=== PATIENT | female | born 1955 | race American Indian/Alaskan Native ===

== ENCOUNTER 2017-03-23 07:04 | Day surgery (SDC) | payer OTHER ==
[~2017-03-23 07:04] MED LIST: ANCEF/STERILE WATER 2 GM/20 ML IV NR
[2017-03-23] MEDS ORDERED: ADRENALIN ONE (07:13)
[2017-03-23] MEDS ORDERED: LACTATED RINGERS 1,000 ML ONE (09:00)
[2017-03-23] MEDS ORDERED: LACTATED RINGERS 1,000 ML IV SCH (10:00)
[2017-03-23] MEDS ORDERED: PEPCID IV NR (10:00)
[2017-03-23] MEDS ORDERED: VERSED IV NR (10:00)
[2017-03-23] MEDS ORDERED: DIPRIVAN 10 MG/ML IV ONE (10:40)
[2017-03-23] MEDS ORDERED: ZEMURON IV ONE (10:40)
[2017-03-23] MEDS ORDERED: XYLOCAINE MPF 2% ONE (10:40)
[2017-03-23] MEDS ORDERED: SUBLIMAZE ONE (10:40)
[2017-03-23] MEDS ORDERED: QUELICIN ONE (10:40)
--- NOTE | 2017-03-23 10:48 | Anesthesia Consultation ---
Anesthesia Consult and Med Hx Date of service: 03/23/17 - Airway Anesthetic Teeth Evaluation: Good (some missing) ROM Head & Neck: Adequate Mental/Hyoid Distance: Adequate Mallampati Class: Class II Intubation Access Assessment: Probably Good - Pulmonary Exam CTA: Yes - Cardiac Exam Cardiac Exam: RRR - Pre-Operative Health Status ASA Pre-Surgery Classification: ASA3 Proposed Anesthetic Plan: General - Pulmonary Hx Sleep Apnea: Yes (DX SLEEP APNEA , NO CPAP USE) - Cardiovascular System Hx Hypertension: Yes
--- NOTE | 2017-03-23 10:49 | Anesthesia Day of Surgery ---
Anesthesia Day of Surgery - Day of Surgery Patient Examined: Yes Patient H&P Reviewed: Yes Patient is NPO: Yes Beta Blockers: Yes Chace's Test: N/A
[2017-03-23] MEDS ORDERED: ePHEDrine SULFATE ONE (11:27)
[2017-03-23] MEDS ORDERED: ADRENALIN IV ONE (11:29)
[2017-03-23] MEDS ORDERED: NEO SYNEPHRINE/NS Syringe(OR USE) IV ONE (12:11)
[2017-03-23] MEDS ORDERED: DILAUDID ONE (12:45)
[2017-03-23] MEDS ORDERED: NACL 0.9% IR ONE ×2 (12:53)
[2017-03-23] MEDS ORDERED: ZOFRAN ONE ×2 (13:03→14:20)
--- NOTE | 2017-03-23 13:42 | Procedure Note ---
Date of procedure: 03/23/17 Pre-op diagnosis: left shoulder rotator cuff tear Post-op diagnosis: same Procedure: Left shoulder arthroscopy with rotator cuff repair, extensive intraarticular debridement, subacromail decompression, distal clavicle excision Anesthesia: GETA, regional Surgeon: DAVID XIAO III Maintenance Foreman: TIFFANIE MONSIVAIS Estimated blood loss: minimal Pathology: none Condition: stable Disposition: PACU
--- NOTE | 2017-03-23 14:24 | Operative Report ---
PREOPERATIVE DIAGNOSIS: Left shoulder rotator cuff tear. POSTOPERATIVE DIAGNOSIS: Left shoulder rotator cuff tear. PROCEDURE: Left shoulder arthroscopy with arthroscopic rotator cuff repair, extended intra-articular debridement, subacromial decompression, distal clavicle excision. IMPLANTS: Aguirre and Nephew two 4.5 mm Healicoils with suture tape and two Multifix lateral row anchors. SURGEON: Des Payan III, MD HOBBER: Mike Aguirre MD ESTIMATED BLOOD LOSS: Minimal, less than 50 mL. ANESTHESIA: General with a regional interscalene block. OPERATIVE REPORT: The patient is a 61-year-old female who had a work injury at the beginning of January. She failed nonoperative treatment including anti-inflammatories and formal physical therapy for more than 6 weeks with pain that did not improve. The patient opted for a left shoulder arthroscopy with rotator cuff repair. MRI of the left shoulder showed 1 cm tear of the posterior aspect of the supraspinatus. The patient was seen in preoperative holding area. Operative limb was signed and marked and the consent was reviewed. All questions were answered. The patient underwent an ultrasound-guided interscalene block by the nurse recovery assistant, was taken back to the operating room theater and put under general anesthesia. The patient was positioned in the beach chair position and the left arm was prepped and draped in the usual manner with chlorhexidine solution for left shoulder arthroscopy. Standard posterior portal was made and the camera was introduced intraarticularly doing a diagnostic scope. Long head of the biceps tendon was intact on the biceps insertion. No tears or erythema seen on the tendon when it was brought into the joint. Subscap was intact. Anterior labrum was intact. There was a grade 2/3 arthritic changes on the glenoid as well as the posterior aspect of the humeral head. There was a full thickness tear viewed from intra-articular of the supraspinatus and anterior fibers of the infraspinatus. The posterior aspect of infraspinatus and teres minor were intact. Inferior glenohumeral ligament was intact. Extended intra-articular debridement was done cleaning up the intra-articular side of the rotator cuff tear. Standard anterior working portal was made with spinal needle guidance. Camera was then placed subacromial, anterolateral portal was made cleaning the subacromial space of all extensive bursitis as well exposing the inferior aspect of the acromion with a significant bony spur present. Barrel-shaped bur was used to flatten out the undersurface of the acromion, removing the significant spur. Attention was then turned to the rotator cuff. Rotator cuff edges were freshened of degenerative tissue and the supraspinatus footprint was prepared with a bur. Excess superior accessory portal was made for anchor placement. One anchor was placed, 4.5 mm Healicoil was placed anteriorly, one was placed posteriorly, approximately 1 cm apart from each other. Arthroscopic suture passer was used to pass the suture tape through the full thickness cuff tissue and they were docked anteriorly. Once all 4 strands were passed, arthroscopic knots in a half hitch alternating fashion were tied tying the anterior and posterior anchors respectively. Then, one suture limb from each anchor was selected and placed through a 5.5 mm Multifix anchor creating a double row construct, the first being placed posteriorly, then the next two sutures were grabbed and placed anteriorly creating a crisscross footprint pattern creating compression on the rotator cuff repair. Once this was completed, pictures were taken and attention was turned to the distal clavicle where the 1 cm of the distal clavicle was excised due to extensive arthritis of the AC joint. Once this was completed, all portal incisions were closed with 3-0 Monocryl in subcuticular fashion followed by Steri-Strips, Adaptic, 4 x 4s, ABDs and Medipore tape. The patient was placed in an abduction sling and a cryotherapy unit was placed over the shoulder. The patient was transferred from the operating room table to the hospital bed and taken to the PACU in stable condition. She will remain in the sling until her first postop visit this coming Thursday. There were no complications. Sponge count was correct at the end of the case. JOB# [id number] KINDRA/ANA
[2017-03-23] MEDS ORDERED: ZOFRAN IV ONE (14:35)
[2017-03-23] MEDS ORDERED: PHENERGAN PO ONE (16:00)
[2017-03-23 16:41] VITALS: BP 134/80
== END 2017-03-23 16:22 | disposition home or self-care (01) ==
LOC: OR 07:04
PROVIDERS: ATTEND Orthopaedic Surgery Sports Medicine
DX: M75.102 Unspecified rotator cuff tear or rupture of left shoulder, not specified as traumatic (principal); G43.909 Migraine, unspecified, not intractable, without status migrainosus; Z98.890 Other specified postprocedural states; I10 Essential (primary) hypertension; E78.00 Pure hypercholesterolemia, unspecified; G47.33 Obstructive sleep apnea (adult) (pediatric)
CPT/HCPCS: 29822; 29824; 29826; 29827; 36415; 84132; A4217; C1713; J0171; J0330; J0690; J1170; J2250; J2370; J2405; J2704; J3010; J7120; L1830; Q0169